=== PATIENT | male | born 1980 | race Two or more races ===

== ENCOUNTER 2016-12-16 17:55 | Emergency (ER) | payer SELFPAY ==
[2016-12-16] MEDS ORDERED: SKIN ADHESIVE (DERMABOND) 1 EACH TP ONE (18:02)
[2016-12-16 18:08] VITALS: TEMP 98.1
--- NOTE | 2016-12-16 18:08 | EDPHY ---
H & P Time Seen by Provider: 12/16/16 18:02 HPI/ROS: CHIEF COMPLAINT: Fall HISTORY OF PRESENT ILLNESS: Patient is a 36-year-old male limited trauma activation who presents emergency department with a head contusion, head laceration and left wrist pain. Patient was on a ladder that slipped. He fell approximately 15 feet onto a counter top. Patient struck his head but did not lose consciousness. He has a mild headache. Patient complains primarily of left wrist pain. Per EMS, the left wrist was splinted. This fracture was not open. The patient denies neck, back pain, chest pain, shortness of breath, abdominal pain, nausea, vomiting REVIEW OF SYSTEMS: My complete review of systems is negative except as mentioned in the HPI.CHIEF COMPLAINT: (Ellen Bill) Past Medical/Surgical History: Negative Past surgical history: Negative (Ellen Bill) Physical Exam: Vitals noted GENERAL: Well-appearing, in no acute distress, alert. HEAD: patient has left anterior head contusion. There is a 2.5 cm left brow laceration. EYES: PERRLA, EOMI, normal to inspection. ENT: Airway intact, no dental or oral injury, no malocclusion, no hemotympanum , normal external examination. NECK: The trachea is midline. There is no crepitus. The C-spine is nontender. NEXUS criteria is negative (no midline tenderness, no distracting injury, no altered mental status, no recent alcohol use, no focal neurologic deficit). RESPIRATORY: Clear to auscultation bilaterally, no rales, rhonchi or wheezing. There is no crepitus or palpable rib fractures. CVS: Regular rate and rhythm, no rubs, murmurs, or gallops. ABDOMEN: Soft, nontender, nondistended, normal bowel sounds, no bruising or abrasions. Pelvis: Stable. No tenderness palpation. Hips full range of motion. BACK: Normal to inspection, no spinal tenderness, no spinal step off, no notable bruising or abrasions. SKIN: Normal color, warm, dry. No pallor or diaphoresis. EXTREMITIES: Right upper extremity: Atraumatic. No visible signs of trauma. No tenderness palpation. Neurovascular intact distally. Left upper extremity: Patient has deformity of his left wrist. The diffuse tenderness to palpation. No proximal forearm, humerus or shoulder tenderness palpation. No laceration or open wound. Right lower extremity: Atraumatic. No visible signs of trauma. No tenderness palpation. Neurovascular intact distally. Left lower extremity: Atraumatic. No visible signs of trauma. No tenderness palpation. Neurovascular intact distally. Atraumatic, neurovascularly intact distally in all extremities, pelvis is stable , hips with full range of motion, moves all extremities freely. NEURO/PSYCH: Alert and oriented x 3, GCS 15, normal mood and affect, normal motor sensory exam. (Ellen Bill S) Constitutional: Initial Vital Signs Temperature (C) 36.7 C 12/16/16 18:06 Heart Rate 71 12/16/16 18:06 Respiratory Rate 16 12/16/16 18:06 Blood Pressure 142/97 H 12/16/16 18:06 O2 Sat (%) 92 12/16/16 18:06 O2 Delivery Mode Room Air Allergies/Adverse Reactions: No Known Allergies Allergy (Unverified 12/16/16 18:06) Home Medications: Medication Instructions Recorded oxyCODONE/APAP 5/325 [Percocet 1 - 2 tab PO Q4PRN PRN #11 tab 12/16/16 5/325 (*)] Medical Decision Making - Diagnostics Imaging Results: Imaging Impressions Head CT 12/16/16 18:09 Impression: 1. Left forehead laceration with no acute intracranial findings. 2. Age indeterminate, likely old nondisplaced nasal bone fracture. Findings discussed with Dr. Ellen Bill on December 16, 2016 at 1902 hours. Wrist X-Ray 12/16/16 18:09 Impression: 1. Acute comminuted intra-articular displaced and angulated distal radius fracture. 2. Acute displaced ulnar styloid chip fracture. Procedures: Procedure: Laceration repair. I was requested by Dr. Bill to perform wound closure I explained the indications, risks and benefits for both laceration repair and anesthetic administration. Verbal consent was obtained from the patient and parent. The laceration on the left forehead was anesthetized using 0.5% bupivicaine with epinephrine . After anesthetic administered the patient was observed for a period of time and had no apparent adverse effects. The wound was cleaned, prepped, draped in normal sterile fashion and explored to its base. No foreign body seen, no foreign bodies palpated. There were no deep structures involved. The wound was repaired with tissue adhesive. The wound repair was simple. The procedure was performed by myself. Patient has been informed that scarring will occur, although efforts have been made to minimize this. (Duy Ferguson) ED Course/Re-evaluation: In the emergency department I met EMS on arrival. I took report from the project coordinator rn. I discussed the plan with the patient. Left wrist was ordered. The head CT without contrast was ordered. Patient was given tetanus booster. Left wrist x-ray: Please refer the dictated report by the radiologist. I discussed the results with the patient. I answered all his questions. I discussed the case with Dr. colmenares. He evaluated the patient. He felt this should be reduced in the emergency department. Head CT: Please refer the dictated report. No acute disease noted except for scalp hematoma. I discussed the need for reduction with the patient. He consented to the procedure. I discussed the pros and cons. I answered all his questions. He was competent to make this decision. Procedure: Hematoma block Indication: Wrist fracture I discussed the pros and cons of the procedure. I answered all the patient's questions. He consented. In sterile fashion the patient was anesthetized with 1% lidocaine with epinephrine. The patient tolerated the procedure well. Procedure: fracture reduction Indication: Left wrist fracture I discussed the pros and cons of the procedure. I answered all the patient's questions he consented. Using a standard remainder manipulation patient's left wrist was reduced. Post procedure the patient was neurovascular intact distally. The patient was placed in a sugar-tong Ortho Glass splint. Post splint placement the patient was neurovascular intact distally played a repeat x-ray was performed. The left wrist x-ray: Patient's fracture is noted. There is improved alignment. I discussed the plan with the patient. He is aware he needs close follow-up with Orthopedics. He was given contact information for Dr. Colmenares. He will return to the emergency department in 8 days to have his sutures removed. ( Ellen Bill) Differential Diagnosis: My differential includes but is not limited to subarachnoid hemorrhage, subdural hematoma, epidural hematoma, spinal injury, wrist fracture, wrist dislocation (Ellen Bill) - Data Points Medications Given: Discontinued Medications Diphtheria/Tetanus/Acell Pertussis (Boostrix) 0.5 ml IM .ONCE ONE Stop: 12/16/16 18:11 Last Admin: 10/11/17 18:32 Dose: 0.5 ml Fentanyl (Sublimaze) 100 mcg IVP ONCE ONE Stop: 12/16/16 19:11 Last Admin: 12/16/16 19:16 Dose: 100 mcg Departure - Departure Disposition: Home, Routine, Self-Care Clinical Impression: Left wrist fracture Qualifiers: Encounter type: initial encounter Fracture type: closed Qualified Code(s): S62.102A - Fracture of unspecified carpal bone, left wrist, initial encounter for closed fracture Head contusion Qualifiers: Encounter type: initial encounter Contusion of head detail: scalp Qualified Code(s): S00.03XA - Contusion of scalp, initial encounter Scalp laceration Qualifiers: Encounter type: initial encounter Qualified Code(s): S01.01XA - Laceration without foreign body of scalp, initial encounter Condition: Good Instructions: Head Injury (ED), Wrist Fracture in Adults (ED), Laceration (ED) Additional Instructions: Wound Care Follow-Up: Removal of sutures in [ 8 ] days. Suture removal is complimentary in uncomplicated cases. Infection or abnormal findings would require reevaluation by the MD. In that case, you may be billed. You fractured your left wrist. You need close follow-up with Orthopedics. Keep your splint in place until you follow up with Orthopedics. Contact Dr. Flores's office tomorrow to make an appointment. Your head CT was normal. Referrals: Stephane Flores MD [Medical Doctor] - 5-7 days, call for appt. Prescriptions: oxyCODONE/APAP 5/325 [Percocet 5/325 (*)] 1 - 2 tab PO Q4PRN PRN #11 tab PRN Reason: For Moderate To Severe Pain
[2016-12-16] MEDS ORDERED: TDAP ADULT 0.5 ML INJ (BOOSTRIX) IM ONE (18:10)
[2016-12-16] MEDS ORDERED: fentaNYL 100 MCG/2 ML INJ IVP ONE (19:10)
[2016-12-16 20:20] VITALS: BP 141/102; PULSE 85; RESP 22; O2SAT 91
--- NOTE | 2016-12-17 05:35 | GCON ---
[f rep st] CONSULTATION Patient Name: NETTA ARREDONDO N-Number: [id number] Date of : 1980 Patient Status: ED Attending Doctor: Ellen Bill MD Consulting Doctor: Stephane Flores MD Date of service: 12/16/16 CPT codes: CPT code 18463 ER visit (not requiring admission), level three CHIEF COMPLAINT: Left wrist pain HISTORY OF PRESENT ILLNESS: This is a very pleasant 36 year old male with a significant history for a fall off of a ladder onto his LUE earlier today (12/16/16) when he was at work. He was taken to the [facility] ED and was found to have a left distal radius fracture (complete and displaced). PROBLEM LIST: Left distal radius fracture PAST MEDICAL HISTORY: None SURGERIES: None SOCIAL HISTORY: Denies tobacco, alcohol, or illicit drug use FAMILY HISTORY: Non-contributory CURRENT MEDICATIONS: None ALLERGIES: NKDA REVIEW OF SYSTEMS Constitutional: No unexpected weight loss, weight gain, fevers, chills, or fatigue. Eyes: No blurred or double vision, no eye pain, redness or swelling. ENT: No headaches, difficulty swallowing, nose bleeds, tinnitus, or earaches. Cardiovascular: No chest pain, palpitations, fainting or murmurs. Respiratory: No shortness of breath, wheezing, cough, of difficulty breathing. GI: No reflux, no nausea or vomiting, no constipation, diarrhea, or bloody stools. Genitourinary: No urinary frequency or urgency, no pain with urination. Skin: No skin changes, rashes, itching, or redness. Neurologic: No unsteadiness of gait, no dizziness, tremors, or seizures. Psychiatric: No nervousness, anxiety, depression, or hallucinations. Hematologic: No increased bleeding or easy bruising. Endocrine: No excessive thirst or urination and no heat or cold intolerances. Allergic: No reactions to food or environment. Musculoskeletal: See history of present illness. PHYSICAL EXAM General: No apparent distress. Orientation: Alert and oriented times three Mood and affect: Calm, appropriate. Gait and station: Normal gait and station. Skin: Warm, dry. Lymph: Non tender neck, axillary and inguinal nodes. Chest: Equal expansion, no pain with deep breaths, speaks in coherent sentences. Cardiovascular: Regular pulse. Abdomen: Soft, non-tender, no masses, no palpable hernias. Bilateral wrist examination Inspection/palpation: Right: Normal resting posture. Left: Moderate swelling of left wrist Wrist ROM Wrist Flexion: 90 / [place] / 90 Extension: 90 / [place] / 90 Forearm Supination: 0-80 / [place] / 0-80 Pronation: 0-80 / [place] / 0-80 Wrist/hand strength (R / L / Normal) EDC: EPL (PIN): FPL (AIN): FDS (C8): FDP (C8): FDP-I (C8 / AIN): DI (C8-T1): PI (C8-T1): Wrist/hand sensory Median: + / + / + Radial: + / + / + Ulnar: + / + / + Vascular tests (R / L / Normal) Radial pulse: 2+ / 2+ / 2+ Ulnar pulse: 2+ / 2+ / 2+ Medical decision making Data Imaging study: right wrist radiographs, three views Action: interpreted Interpretation / pertinent findings: Left distal radius fracture, complete and displaced with dorsal translation of the distal segment Diagnoses New diagnosis: left distal radius fracture, complete and displaced Work-up planned: yes: see assessment and plan Assessment and plan This is a 36 year old male s/p a left distal radius fracture (complete and displaced) after a fall off of a ladder earlier today (12/16/16) at work -Recommend closed reduction and splinting while the patient is in the ED -FU in the office in 2-3 days for assessment of post-reduction radiographs -Strict NWB on LUE Time I have spent 20 minutes of [id number] time with the patient during this visit. Over fifty percent of this time was spent counseling the patient on the risks, benefits, alternatives, and complications of both non-operative and operative forms of treatment as outlined above. /[id number]/MODL MTDD
== END 2016-12-16 20:18 | disposition home or self-care (01) ==
PROC: 0HQ1XZZ Repair Face Skin, External Approach (ICD-10-PCS; principal; 2016-12-16)
PROC: 0PSJXZZ Reposition Left Radius, External Approach (ICD-10-PCS; 2016-12-16)
DX: S01.81XA Laceration without foreign body of other part of head, initial encounter (principal); S62.102A Fracture of unspecified carpal bone, left wrist, initial encounter for closed fracture; Z23 Encounter for immunization; W11.XXXA Fall on and from ladder, initial encounter
CPT/HCPCS: 96374; J3010